=== PATIENT | female | born 1995 | race Two or more races ===

== ENCOUNTER 2020-02-24 19:54 | Emergency (ER) | payer SELFPAY ==
[~2020-02-24] VITALS: Ht 157.5 cm; Wt 68.1 kg
--- NOTE | 2020-02-24 20:51 | PHYS DOC ---
Past Medical History Past Medical History: No Pertinent History (RUSS MARIE SUPPLY CATALOGUER) Past Surgical History: No Surgical History (RUSS MARIE SUPPLY CATALOGUER) Smoking Status: Never Smoker Alcohol Use: None (RUSS MARIE SUPPLY CATALOGUER) General Adult EDM: Chief Complaint: ABDOMINAL PAIN IN HPI: HPI: Patient is a 25 year old female who presents with right flank pain that wraps around to the mid lower abdomen and. States that sharp and shooting at times. It started last night. She states is more so the lower abdomen. She states she does have burning with urination. She rates her pain 9 out of 10. She states 2 to 3 hours prior to arrival she took 1 Tylenol. Her last menstrual period was November 282019. Patient states she does not have an OB appointment until and that will be her first OB appointment. Patient denies nausea, vomiting, diarrhea, fever, chest pain, shortness of breath, dizziness, headache, cough, numbness or tingling, focal weakness. Patient denies abnormal vaginal discharge or vaginal bleeding. She denies any other past medical history. (RUSS MARIE SUPPLY CATALOGUER) Review of Systems: Review of Systems: Constitutional: Denies fever or chills. [] Eyes: Denies change in visual acuity. [] HENT: Denies nasal congestion or sore throat. [] Respiratory: Denies cough or shortness of breath. [] Cardiovascular: Denies chest pain or edema. [] GI: abdominal pain, denies. Nausea, vomiting, bloody stools or diarrhea. [] : Denies dysuria. Burning with urination. [] Musculoskeletal: Denies back pain or joint pain. Right flank pain. [] Integument: Denies rash. [] Neurologic: Denies headache, focal weakness or sensory changes. [] Endocrine: Denies polyuria or polydipsia. [] Lymphatic: Denies swollen glands. [] Psychiatric: Denies depression or anxiety. [] (RUSS MARIE SUPPLY CATALOGUER) Heart Score: Risk Factors: Risk Factors: DM, Current or recent (<one month) smoker, HTN, HLP, family history of CAD, obesity. Risk Scores: Score 0 - 3: 2.5% MACE over next 6 weeks - Discharge Home Score 4 - 6: 20.3% MACE over next 6 weeks - Admit for Clinical Observation Score 7 - 10: 72.7% MACE over next 6 weeks - Early Invasive Strategies (RUSS MARIE APRN) Current Medications: Current Medications Medications (Trade) Dose Ordered Sig/Nelson Start Time Stop Time Status Last Admin Dose Admin Acetaminophen (Tylenol) 1,000 mg 1X ONCE 02/24/20 20:45 02/24/20 20:46 UNV (RUSS MARIE APRN) Physical Exam: PE: Constitutional: Well developed, well nourished, no acute distress, non-toxic appearance. [] HENT: Normocephalic, atraumatic, bilateral external ears normal, oropharynx moist, no oral exudates, nose normal. [] Eyes: PERRLA, EOMI, conjunctiva normal, no discharge. [] Neck: Normal range of motion, no tenderness, supple, no stridor. [] Cardiovascular:Heart rate regular rhythm, no murmur [] Lungs & Thorax: Bilateral breath sounds clear to auscultation [] Abdomen: Bowel sounds normal, soft, no tenderness, no masses, no pulsatile masses. [] Skin: Warm, dry, no erythema, no rash. [] Back: No tenderness, no CVA tenderness. [] Extremities: No tenderness, no cyanosis, no clubbing, ROM intact, no edema. [] Neurologic: Alert and oriented X 3, normal motor function, normal sensory function, no focal deficits noted. [] Psychologic: Affect normal, judgement normal, mood normal. Normal physical exam. [] (RUSS MARIE APRN) Current Patient Data: Vital Signs: Vital Signs Date Time Temp Pulse Resp B/P (MAP) Pulse Ox O2 Delivery O2 Flow Rate FiO2 02/24/20 20:29 98.8 72 24 117/69 (85) 99 Room Air 98.8 (RUSS MARIE APRN) EKG: EKG: [] (RUSS MARIE APRN) Radiology/Procedures: Radiology/Procedures: [] Impression: [facility] [address] [place] [address] IMAGING REPORT Signed PATIENT: WARREN RIGGS ACCOUNT: [id number] : 1995 LOCATION: ER AGE: 25 SEX: F EXAM STATUS: REG ER ORD. PHYSICIAN: RUSS MARIE APRN REASON: ABDOMINAL PAIN PROCEDURE: OB < 14 WKS Exam: Ultrasound OB less than 14 weeks Indication: Abdominal pain Technique: Real-time grayscale and color Doppler images of the pelvis were obtained by the department organ assembler. Comparisons: None FINDINGS: Within the uterus there is a single live intrauterine gestation measuring 5.6 cm corresponding to 12 weeks 1 day. heart rate measured at 163 bpm. Gestational sac has a normal appearance. Right ovary measures 11.1 x 5.6 x 5.8 cm. There is a dominant cyst within the right ovary which measures 4.4 cm. Left ovary measures 3.8 x 2.8 x 1.8 cm. Vascular flow identified within the ovaries bilaterally. IMPRESSION: 1. Single live intrauterine gestation of 12 weeks 5 days by current ultrasound. Correlate with LMP. 2. Dedicated survey is recommended at 18-20 weeks gestation. Electronically signed by: Zhou Martinez MD (02/24/2020 10:15 PM) [id number] DICTATED and SIGNED BY: ZHOU MARTINEZ MD DATE: 02/24/201 (RUSS MARIE APRN) Course & Med Decision Making: Course & Med Decision Making Pertinent Labs and Imaging studies reviewed. (See chart for details) See HPI. Alert and oriented x4. Speaks in full clear sentences. Ambulatory with a steady gait. Abdomen is soft and nontender. Skin pink warm and dry. Vital signs are within normal limits. Urinalysis shows no infection but shows contamination. There is no blood in her urine. OB ultrasound shows normal 12-week uterine . Patient does have a right ovarian cyst. Patient is in a lot of pain and crying rating her pain a 10 out of 10. Patient's pain seems out of proportion to a ovarian cyst. I have ordered a renal ultrasound check for kidney stone and also asked for them to check her appendix. I have discussed this patient with Dr Lucas. Care is signed over to Dr Lucas at [id number]. [] (RUSS MARIE APRN) Course & Med Decision Making Renal sonogram: 1. No hydronephrosis on either side. The sonographic appearance of both kidneys is normal. Unremarkable bladder. Right lower quadrant ultrasound: 1. No findings by sonography at the right lower quadrant to suggest an inflammatory process but appendicitis cannot be excluded as the appendix was not able to be seen. Patient evaluated. Abdomen is soft. Tenderness is suprapubic. No rebound or gaurding RLQ or LLQ Patient states she had a similar episodes 1 month ago. Patients pain has greatly improved. Denies nausea vomiting or diarrhea. US results discussed with patient. Patient will be Rx tylenol with codeine, PNV, and macrobid. Patient advised to Return to ER if pain returns and or continues. (LANDON LUCAS DO) Dragon Disclaimer: Dragon Disclaimer: This electronic medical record was generated, in whole or in part, using a voice recognition dictation system. (RUSS MARIE APRN) Departure Departure Impression: Primary Impression: Abdominal pain affecting Additional Impressions: Urinary symptom or sign Ovarian cyst Disposition: HOME, SELF-CARE Condition: STABLE Referrals: NO PCP (PCP) Patient Instructions: Abdominal Pain During , Ovarian Cyst, Additional Instructions: RETURN TO THIS ER IN 24 HOURS IF PAIN RETURNS. Scripts Nitrofurantoin Monohyd/M-Cryst (MACROBID 100 MG CAPSULE) 100 Mg Capsule 1 CAP PO BID for 10 Days, #20 CAP 0 Refills Prov: LANDON LUCAS I 02/25/20 Acetaminophen With Codeine (ACETAMINOPHEN-COD #3 TABLET) 1 Each Tablet 1 TAB PO PRN Q6HRS PRN for PAIN, #14 TAB Prov: LANDON LUCAS I 02/25/20 Vit No.124/Iron/FA ( Vitamin Tablet) 1 Each Tablet 1 TAB PO DAILY for 30 Days, #30 TAB 0 Refills Prov: LANDON LUCAS I 02/25/20 Justicifation of Admission Dx: Justifications for Admission: Justification of Admission Dx: N/A (RUSS MARIE APRN) RUSS MARIE APRN Feb 24, 2020 20:51 MGLANDON Errol PATTERSON Feb 25, 2020 00:16
[2020-02-24] MEDS ORDERED: ACETAMINOPHEN 500 MG TABLET PO ONE (21:00)
[2020-02-24 21:03] LABS: BILIRUBIN,URINE NEGATIVE (NEG); CLARITY,URINE CLEAR; COLOR,URINE YELLOW; NITRITE,URINE NEGATIVE (NEG); PH,URINE 6.5 (<5.0-8.0); PROTEIN,URINE NEGATIVE (NEG-TRACE)
[2020-02-24 21:08] LABS: BACTERIA,URINE MANY /HPF (0-FEW); SQUAMOUS EPITHELIAL CELL,UR MANY /LPF
[2020-02-24 21:09] LABS: RBC,URINE 0 /HPF (0-2); WBC,URINE OCC /HPF (0-4)
[2020-02-24 22:17] LABS: BASO % 0 % (0-3); EOS % 0 % (0-3); HEMATOCRIT 37.3 % (36.0-47.0); HEMOGLOBIN 12.7 g/dL (12.0-15.5); LYMPH # 1.3 x10^3/uL (1.0-4.8); LYMPH % 10 % (24-48); MEAN CORPUSCULAR HEMOGLOBIN 29 pg (25-35); MEAN CORPUSCULAR HGB CONC 34 g/dL (31-37); MEAN CORPUSCULAR VOLUME 85 fL (79-100); MONO # 0.5 x10^3/uL (0.0-1.1); MONO % 4 % (0-9); NEUT # 10.6 x10^3/uL (1.8-7.7); NEUT % 85 % (31-73); PLATELET COUNT 206 x10^3/uL (140-400); RED BLOOD COUNT 4.37 x10^6/uL (3.50-5.40); RED CELL DISTRIBUTION WIDTH 13.6 % (11.5-14.5); WHITE BLOOD COUNT 12.5 x10^3/uL (4.0-11.0)
--- NOTE | 2020-02-24 22:18 | RAD ---
Exam: Ultrasound OB less than 14 weeks Indication: Abdominal pain Technique: Real-time grayscale and color Doppler images of the pelvis were obtained by the department aircraft engine mechanic. Comparisons: None FINDINGS: Within the uterus there is a single live intrauterine gestation measuring 5.6 cm corresponding to 12 weeks 1 day. heart rate measured at 163 bpm. Gestational sac has a normal appearance. Right ovary measures 11.1 x 5.6 x 5.8 cm. There is a dominant cyst within the right ovary which measures 4.4 cm. Left ovary measures 3.8 x 2.8 x 1.8 cm. Vascular flow identified within the ovaries bilaterally. IMPRESSION: 1. Single live intrauterine gestation of 12 weeks 5 days by current ultrasound. Correlate with LMP. 2. Dedicated survey is recommended at 18-20 weeks gestation. Electronically signed by: Zhou Hoffmann MD (02/24/2020 10:15 PM) [id number]
[2020-02-24] MEDS ORDERED: CEPH-264 PO (22:24)
[2020-02-24 22:26] LABS: CALCIUM 8.5 mg/dL (8.5-10.1); CREATININE 0.7 mg/dL (0.6-1.0); GFR 100.4
[2020-02-24 22:34] LABS: ALBUMIN/GLOBULIN RATIO 0.7 (1.0-1.7); TOTAL BILIRUBIN 0.3 mg/dL (0.2-1.0); TOTAL PROTEIN 7.3 g/dL (6.4-8.2)
[2020-02-24 22:35] LABS: % BANDS 1 % (0-9); % LYMPHS 13 % (24-48); % MONOS 3 % (0-10); % SEGS 83 % (35-66); PLT ESTIMATE ADEQUATE (ADEQUATE)
[2020-02-24 22:37] LABS: TOXIC GRANULATION SLIGHT
[2020-02-24] MEDS ORDERED: fentaNYL PF VIAL 100 MCG/2 ML VIAL IVP ONE (23:00)
--- NOTE | 2020-02-24 23:54 | RAD ---
Study: 1. US RENAL COMPLETE BILATERAL 2. US RIGHT LOWER QUANDRANT Indication: Right flank pain. Right lower quadrant pain. Comparison: None. Technique/Findings: Sonographic assessment performed of both kidneys and urinary bladder as well as the right lower quadrant. Renal sonogram: The right kidney measures 11.1 cm in length. Normal cortical thickness and echogenicity. No hydronephrosis. The left kidney measures 12.2 cm in length. Normal cortical thickness and echogenicity. No hydronephrosis. No complex cyst or mass seen on either side. No layering debris within the bladder or localized wall thickening. Prevoid bladder volume of 300 cc. Right lower quadrant sonogram: The appendix was not able to be visualized. No fluid collection or lymphadenopathy seen by sonography of the right lower quadrant. A right ovarian cyst with a thin internal septation was better seen on the same day OB sonogram. Impression: Renal sonogram: 1. No hydronephrosis on either side. The sonographic appearance of both kidneys is normal. Unremarkable bladder. Right lower quadrant ultrasound: 1. No findings by sonography at the right lower quadrant to suggest an inflammatory process but appendicitis cannot be excluded as the appendix was not able to be seen. Electronically signed by: JALEESA CLIFTON MD (02/24/2020 11:51 PM) [id number]
[2020-02-25] MEDS ORDERED: ACET1TAB33 PO (00:14)
[2020-02-25] MEDS ORDERED: PREN-48 PO (00:14)
[2020-02-25] MEDS ORDERED: NITR100C62 PO (00:14)
--- NOTE | 2020-02-25 03:20 | RAD ---
INDICATION: Abdominal pain in COMPARISON: Ultrasound from February 24, 2020 TECHNIQUE: Multiplanar, multisequence MRI images obtained of the pelvis without contrast FINDINGS: The urinary bladder is distended at time of exam. There is some free fluid seen within the pelvis. Gravid uterus with the fetus is not formally evaluated on this examination. Within the right lower quadrant there is a couple of cystic structures identified versus a septated cystic structure. This conglomerate measures up to 60 x 52 mm. There is some adjacent edema and fluid within the soft tissues. Small fat-containing umbilical hernia. The appendix is not well seen. IMPRESSION: * Within the right lower quadrant there is a couple of cystic structures or a complex cystic structure with a septation with some surrounding edema and small amount of fluid. One possible cause would include adnexal origin from ovarian cyst formation. Would also correlate with symptoms and lab markers to ensure that this is not secondary to pelvic inflammatory disease with tubo-ovarian abscess formation. Follow-up will be needed to ensure that this appropriately decreases. * The appendix is not well visualized secondary to bowel motion obscuring the region as well as distortion of the soft tissue structures from the distended bladder, cystic lesion as well as gravid uterus. Electronically signed by: Lalo Bal MD (02/25/2020 3:17 AM) [id number]
[2020-02-25 04:25] VITALS: BP 115/58
== END 2020-02-25 04:27 | disposition home or self-care (01) ==
LOC: ER 19:54
DX: O26.891 Other specified pregnancy related conditions, first trimester (principal); N83.291 Other ovarian cyst, right side; R30.9 Painful micturition, unspecified; Z3A.12 12 weeks gestation of pregnancy
CPT/HCPCS: 36415; 72195; 76770; 76801; 80053; 81001; 81025; 83690; 84702; 85007; 85025; 87086; 93975; 96374; 99285; J3010